=== PATIENT | female | born 1975 | race Hispanic/Latino ===

== ENCOUNTER 2024-03-08 21:24 | Emergency (ER) | payer SELFPAY ==
[2024-03-08 21:26] VITALS: BP 129/86
[2024-03-08] MEDS: ADACEL 0.5 ML IM (22:10)
--- NOTE | 2024-03-08 23:55 | ED.GENMED ---
History of Present Illness
General
Chief Complaint: Skin Surface Trauma
Source: patient
Exam Limitations: none
Time Seen by Provider: 03/08/24 21:33
Nursing documentation reviewed up to this point in time: agreed with
Travel History
Have you had any contact with someone who has COVID-19?: No
Do you have any symptoms of coronavirus? Fever > 100 degrees, chills, cough, shortness of breath, sore throat, loss of taste or smell, muscle aches, or headache?: No
History of Present Illness
History of Present Illness:
48-year-old female presents with laceration to the right middle finger. She was opening a can and sliced the finger on exam. No other injuries or complaints. Unsure of last tetanus.
Past History
Past History
ED Past Medical History: Other (IBS, Interstitial cystitis)
Social History
Tobacco: Non-smoker
Personal:
Living: with family
Employment: Employed
Review of Systems
Review of Systems
All Other Systems: ROS reviewed and negative except as documented in HPI and ROS
Skin: Reports other (Finger laceration)
Phy Exam
Physical Exam
Physical Exam:
General: Well appearing and non-toxic
HEENT: protecting airway
Neck: appears supple
CV: No evidence of cyanosis
Resp: No accessory muscle use
Abd: Non-distended
Extremities: No deformities
Neuro: Alert
Psych: Normal affect
Skin: Patient has small approximately 1.5 cm vertical laceration on the dorsum of the right third digit over the PIP joint; explored laceration through full range of motion and there is no visible tendon injury; she has no weakness on extension of
the finger against resistance to suggest occult tendon injury
Scores
Heart Failure Risk
Heart Failure Risk Score: Not Applicable
Heart Score for Chest Pain Patients
STEMI patient?: Not applicable
Withdrawal Assessment of Alcohol
Withdrawal Assessment Completed?: Not applicable
Course
Orders/Labs/Results
Orders:
Orders
03/08/24 21:58
Tetanus/Diphth/Acelpertussis [Adacel] 0.5 ml IM .ONCE ONE
Vital Signs
Initial and Last Documented VS:
Initial Vital Signs
Temp Pulse Resp BP Pulse Ox
36.8 C 75 18 129/86 100
03/08/24 21:26 03/08/24 21:26 03/08/24 21:26 03/08/24 21:26 03/08/24 21:26
Last Documented Vital Signs
Temp Pulse Resp BP Pulse Ox
36.8 C 75 18 129/86 100
03/08/24 21:26 03/08/24 21:26 03/08/24 21:26 03/08/24 21:26 03/08/24 21:26
Procedures
Laceration Closure
Right Middle Finger:
Status of Wound: clean
Size of Wound in cm: 1.5
Description of Wound Edges: sharp
Preparation: cleaned with saline
Anesthesia: Digital-Regional (Using 1% lidocaine without epinephrine)
Revision/Debridement: routine- no revision
Wound exploration: no tendon involvement
Type of Closure: single layer closure
Skin Closure Material: 5-0 nylon
Number of sutures: 3
Additional information:
Finger splint applied
MDM/Problems Addressed
Differential Diagnosis Includes:
Laceration
MDM/Problems Addressed:
48-year-old female presents for laceration to the middle finger as described above�vertical laceration going across the PIP joint on the dorsum. She has no visible tendon and no weakness on extension against resistance to suggest an occult tendon
injury. Laceration repaired with sutures as documented procedure note. Tetanus updated. Placed in a finger splint given location to allow for healing. Advised to return for signs of infection otherwise we will follow-up for suture removal in a
week. Patient comfortable with this plan. All questions answered.
*Pulse Oximetry
Patient hypoxic: no
*Critical Care Note
Total Time (30-74mins, 75-104mins- exclusive of procedures): Not Applicable
Data Reviewed
Source: patient
ED Attending Note
-
Portions of this chart may have been created with voice recognition software.� Occasional wrong word or��sound alike� substitutions may have occurred due to the inherent limitations of voice recognition software.
Discharge Plan
Departure
Patient Disposition: Home (Routine Discharge)
Date of Disposition: 03/08/24
Time of Disposition: 21:58
Patient with high blood pressure during this ER visit?: No
Discharge Problem:
Finger laceration
Instructions: Laceration Repair With Stitches (DC)
Activity Restrictions/Additional Instructions:
You must have your stitches removed in 5 to 7 days�he can return here to the emergency room, follow-up with your primary, or go to urgent care to have your sutures removed. If you notice any signs of infection return immediately to be reassessed.
Thank you for visiting the Emergency Department at [facility].
1. Please schedule a follow up appointment as directed. Call first thing tomorrow morning to make an appointment.
2. If indicated, please take your medications as instructed and indicated on discharge paperwork.
3. If any of your symptoms do not improve, or persist, or become more severe within 6-12 hours, please return to the emergency department for further care.
4. Please return to the emergency department if you develop a headache, neck pain/stiffness, fever greater than 100.4F, chest pain, shortness of breath, persistent nausea, vomiting, slurred speech, difficulty walking, numbness/tingling, weakness,
signs of infection or any other symptoms that are worrisome to you.
Please call [phone] if you have any questions.
Interventions
Interventions:
*Risk Screen - Suicide Last Done: 03/08/24 22:08
*General Assessment Last Done: 03/08/24 22:08
*Neglect/Abuse Screening Last Done: 03/08/24 22:08
*ED COVID-19 Vaccine History Last Done: 03/08/24 22:08
*Nursing Disposition Last Done: 03/08/24 22:12
ED-Skin Assessment Last Done: 03/08/24 22:08
Discharge Date and Time
Discharge Date/Time: 03/08/24 22:13
Print Language: [id number]
== END 2024-03-08 22:13 | disposition home or self-care (01) ==
LOC: EMR 21:24
PROVIDERS: EMERGENCY PHYSICIAN Emergency Medicine
DX: S61.212A Laceration without foreign body of right middle finger without damage to nail, initial encounter (principal); W26.8XXA Contact with other sharp object(s), not elsewhere classified, initial encounter; Z23 Encounter for immunization; K58.9 Irritable bowel syndrome, unspecified
CPT/HCPCS: 99282; 12001; 90471; 90715

== ENCOUNTER → 2024-10-07 15:48 | Outpatient (REF) | payer OTHER, SELFPAY | LOC: WDC 15:48 | PROVIDERS: ATTENDING PHYSICIAN Physician Assistant | DX: Z12.31 Encounter for screening mammogram for malignant neoplasm of breast (principal) | CPT/HCPCS: 77063; 77067 ==

== ENCOUNTER → 2025-09-15 08:04 | Outpatient (REF) | payer OTHER, SELFPAY | LOC: HWRAD 08:04 | PROVIDERS: ATTENDING PHYSICIAN Physician Assistant | DX: N93.9 Abnormal uterine and vaginal bleeding, unspecified (principal) | CPT/HCPCS: 76830; 76856 ==